=== PATIENT | male | born 1995 ===

== ENCOUNTER 2018-08-30 09:22 | Emergency (ER) | payer OTHER ==
[2018-08-30 09:29] VITALS: BMI 29.2
[2018-08-30 10:11] VITALS: BP 118/74; PULSE 99; RESP 18; TEMP 98.7; O2SAT 97
--- NOTE | 2018-08-30 10:17 | C.PDOC ---
History Of Present Illness Pt c/o itchy rash on trunk and proximal extremities. Time Seen by Provider: 08/30/18 09:45 Chief Complaint (Nursing): Abnormal Skin Integrity History Per: Patient Onset/Duration Of Symptoms: Days (1) Current Symptoms Are (Timing): Still Present Quality Of Symptoms: Itching Severity: Moderate Additional History Per: Prior Records Past Medical History Reviewed: Historical Data, Nursing Documentation, Vital Signs Vital Signs: Last Vital Signs Temp 98.7 F 08/30/18 09:32 Pulse 99 H 08/30/18 09:32 Resp 18 08/30/18 09:32 BP 118/74 08/30/18 09:32 Pulse Ox 97 08/30/18 09:32 - Medical History PMH: No Chronic Diseases Family History: States: Unknown Family Hx - Social History Hx Alcohol Use: No Hx Substance Use: No - Immunization History Hx Tetanus Toxoid Vaccination: No Hx Influenza Vaccination: No Hx Pneumococcal Vaccination: No Review Of Systems Except As Marked, All Systems Reviewed And Found Negative. Constitutional: Negative for: Fever, Weakness ENT: Negative for: Mouth Pain, Mouth Swelling, Throat Pain, Throat Swelling Respiratory: Negative for: Cough, Shortness of Breath Gastrointestinal: Negative for: Vomiting, Abdominal Pain Musculoskeletal: Negative for: Neck Pain Skin: Positive for: Rash Neurological: Negative for: Weakness, Numbness, Headache Physical Exam - Physical Exam Appears: Non-toxic, No Acute Distress Skin: Normal Color, Warm, Dry, Rash (erythematous maculopapular rash on trunk and proximal extremities in a "sulaiman tree" distribution. Not on palms or soles. ) Head: Atraumatic, Normacephalic Eye(s): bilateral: PERRL, EOMI Throat: Normal Neck: Normal ROM, Supple Cardiovascular: Rhythm Regular Respiratory: Normal Breath Sounds, No Accessory Muscle Use Extremity: Normal ROM Neurological/Psych: Oriented x3, Normal Motor, Normal Sensation ED Course And Treatment O2 Sat by Pulse Oximetry: 97 Pulse Ox Interpretation: Normal Disposition Counseled Patient/Family Regarding: Diagnosis, Need For Followup, Rx Given - Disposition Referrals: [facility] [Outside] Disposition: HOME/ ROUTINE Disposition Time: 10:18 Condition: STABLE Additional Instructions: Follow up with your doctor or in the clinic. Return to the ER if you develop fever, throat swelling, trouble breathing, worsening of symptoms or if you have any other concerns. Prescriptions: DiphenhydrAMINE [Benadryl] 25 mg PO Q4 PRN #30 cap PRN Reason: Allergy Symptoms Instructions: Pityriasis Rosea, Skin Rash (DC) - Clinical Impression Clinical Impression: Pityriasis rosea-like skin eruption
== END 2018-08-30 10:28 | disposition home or self-care (01) ==
LOC: C.ER 09:22
DX: L42 Pityriasis rosea (principal)